=== PATIENT | male | born 2005 | race Caucasian/White ===

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

== ENCOUNTER 2025-05-20 07:34 | Emergency (ER) | payer OTHER, SELFPAY ==
--- NOTE | ~2025-05-20 | XR_ITS ---
CLINICAL HISTORY: rt hand pain 3 view right hand Comparison: None provided Findings: No fractures or dislocations. No significant arthritic change. No erosions. No radiopaque foreign body. IMPRESSION: 1. No acute findings This document has been electronically signed by: Ryan Velásquez MD on 05/20/2025 08:31:24
[2025-05-20 07:39] VITALS: BP 120/78; PULSE 61; RESP 16; TEMP 36.6; O2SAT 99; BMI 20.2
--- OUTSIDE RECORDS SUMMARY | 2025-05-20 07:47 | XMS_ITS | Encounter Summary ---
Author Organization [facility] Address [address] [place] [id number] Phone Care Team Providers Care Guide Foreign Tour Name Role Phone Hailey Connor MD Primary Care Provider [phone] Encounter Details Date Type Department Care Team (Late st Contact Info) Description 03/02/2011 Documentation [facility] Family Medicine [address] [place] [address] Family Medicine, Physician [address], [place] [id number] Social History Tobacco Use Types Packs/Day Years Used Date Smoking Tobacco: Never Assessed Sex and Gender Information Value Date Recorded Sex Assigned at Male 09/02/2023 12:38 PM EST Legal Sex Male 5:22 PM EDT Gender Identity Male 09/02/2023 12:38 PM EST Sexual Orientation Straight 09/02/2023 12 :38 PM EST documented as of this encounter Plan of Treatment Not on file documented as of this encounter Visit Diagnoses Not on filedocumented in this encounter Care Teams Guide Foreign Tour Relationship Specialty Start Date End Date Hailey Connor MD [address] [place] [address] PCP - General Pediatrics 02/25/23 documented as of this encounter
[2025-05-20 08:48] VITALS: BP 120/78; PULSE 61; RESP 16; TEMP 36.6; O2SAT 99
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
[2025-05-20] MEDS: Diphth,Pertus(ACell),Tet Adult 0.5 ML SYRINGE IM (09:03)
[2025-05-20] MEDS: Silver Nitrate Applicator STICK..EA. 1 APPL TOPICAL (09:10)
== END 2025-05-20 09:11 | disposition home or self-care (01) ==
PROVIDERS: Emergency Provider Emergency Medicine
DX: S61.214A Laceration without foreign body of right ring finger without damage to nail, initial encounter (principal); M79.644 Pain in right finger(s); X99.8XXA Assault by other sharp object, initial encounter; Y93.89 Activity, other specified; Y92.89 Other specified places as the place of occurrence of the external cause; Y99.9 Unspecified external cause status
CPT/HCPCS: 12001; 73130; 90471; 90715; 99284

== ENCOUNTER → 2025-05-20 07:40 | Outpatient (BNV) | payer OTHER, SELFPAY | PROVIDERS: Emergency Provider Emergency Medicine; Visit Provider Specialist | DX: M79.641 Pain in right hand (principal) | CPT/HCPCS: 73130 ==

== ENCOUNTER 2025-05-22 07:40 | Emergency (ER) | payer OTHER, SELFPAY ==
--- OUTSIDE RECORDS SUMMARY | 2025-05-20 07:34 | XMS_ITS | Encounter Summary ---
Author Organization [facility] Address [address] [place] [address] Phone Care Team Providers Care Coconut Boiler Name Role Phone Hailey Connor MD Primary Care Provider [phone] Reason for Visit * Reason Comments ED Admission Encounter Details Date Type Department Care Team (Late st Contact Info) Description 05/20/2025 7:34 AM EDT - 05/20/2025 8:49 AM EDT Emergency [facility] - Patient Ping Social History Tobacco Use Types Packs/Day Years Used Date Smoking Tobacco: Never Assessed Hunger/Food Answer Date Recorded In the last 12 months, did y ou or your family ever eat less than you felt you should because there wasn't enough money for food? No 09/02/2023 Stable Housing Answer Date Recorded Are you worried that in the next 2 months you may not have stable housing? No 09/02/2023 Transportation Concerns Answer Date Rec orded In the last 12 months, have you or your family ever had to go without healthcare because you didn't have a way to get there? No 09/02/2023 Hazards in Home Answer Date Recorded Think about the place you li ve. Do you have problems with any of the following? Pests (mice or roaches), mold, no/not working smoke detectors, water leaks, no window guards. No 2022 Financing Utilities Answer Date Recorde d In the last 12 months, has t he electric, gas, oil, or water company threatened to shut off your services in your home? No 09/02/2023 Safety at Home Answer Date Recorded Are you or your family worried about feeling saf e in your home? No 09/02/2023 Outside Support Answer Date Recorded Do you feel that you need mo re support from other people or programs to help you care for yourself or your family? No 09/02/2023 Understanding Health Concerns Answer Da te Recorded Do you need help understandi ng your or your child's healthcare needs (diagnosis, medications, plan, etc.)? No 09/02/2023 Financing Health Concerns Answer Date R ecorded In the last 12 months, was t here a time when your child needed to see a doctor or get medications or supplies but could not because of cost? No 09/02/2023 Missing School or Work Answer Date Sam rded Did you or your child miss s chool or work because of a health problem that could have been avoided? No 09/02/2023 Sex and Gender Information Value Date Recorded Sex Assigned at Male 09/02/2023 12:38 PM EST Legal Sex Male 5:22 PM EDT Gender Identity Male 09/02/2023 12:38 PM EST Sexual Orientation Straight 09/02/2023 12 :38 PM EST documented as of this encounter Plan of Treatment Not on file documented as of this encounter Visit Diagnoses Not on filedocumented in this encounter Care Teams Coconut Boiler Relationship Specialty Start Date End Date Hailey Connor MD [address] [place] [id number] PCP - General Pediatrics 02/25/23 documented as of this encounter
[2025-05-22 07:52] VITALS: BP 109/61; PULSE 77; RESP 14; TEMP 36.6; O2SAT 99; BMI 19.9
--- NOTE | 2025-05-22 08:06 | ED_ITS ---
HPI - General Adult General Chief complaint: Wound/Laceration Stated complaint: Finger injury, seen recently Time Seen by Provider: 05/22/25 07:58 Source: patient and family (Mother) Mode of arrival: ambulatory Limitations: no limitations History of Present Illness ED Provider: DR. Martinez HPI narrative: 19-year-old male right-handed came in for evaluation of a right ring finger possible infection. Patient was seen on 05/20 for right ring finger injury after punching a wall, causing small laceration that was closed 24 hour after the incident by Derm[facility]. Patient was discharged home on Augmentin today is day 3 to take. The x-ray revealed no acute fracture of the finger. Related Data Previous Rx's ?Medication ?Instructions ?Recorded amoxicillin 875 mg-potassium 1 tab PO BID 7 days #14 t abs 05/20/25 clavulanate 125 mg tablet doxycycline hyclate 100 mg tablet 100 mg PO BID #14 ta bs 05/22/25 Allergies Allergy/AdvReac Type Severity Reaction Status Date / Time No Known Allergies Allergy Verified 05/22/25 07:56 Review of Systems 2 Review of Systems: All other systems are reviewed and are negative Constitutional: Reports as per HPI and Reports no additional constitutional complaints Eyes: Reports as per HPI and Reports no additional eye complaints Reports system reviewed and no additional complaints, except as documented Cardiovascular: Reports as per HPI and Reports no additional cardiovascular complaints Respiratory: Reports as per HPI and Reports no additional respiratory complaints Gastrointestinal: Reports as per HPI and Reports no additional gastrointestinal complaints Genitourinary: Reports no additional female genitourinary complaints Musculoskeletal: Reports no additional musculoskeletal complaints Skin/Breast: Reports system reviewed and no additional complaints, except as docu Psychiatric: Reports no additional psychiatric complaints Endocrine: Reports no additional endocrine complaints Hematologic/Lymphatic: Reports no additional hematologic/lymphatic complaints Allergic/Immunologic: Reports no additional allergic/immunologic complaints Reports system reviewed and no additional complaints, except as documented and Reports Abnormal speech present [facility] Past Medical History Medical History No known health problems Social History Social History Alcohol intake: current Alcohol intake frequency: holidays/special occasions only Alcohol type: hard liquor Patient Tobacco Use Status: Current everyday Tobacco user Smoked in Last 30 Days: No Substance Use Type: Marijuana Current occupational status: unemployed Physical Exam ED Vital Signs: Vital Signs - 24 hr 05/22/25 07:52 Temperature 98 F Pulse Rate 77 Respiratory Rate 14 Blood Pressure 109/61 Pulse Oximetry 99 Oxygen Delivery Method Room Air BMI result Body Mass Index 19.9 Vital signs have been reviewed and appear to be correct. Blood pressure elevated. Heart rate normal. Respiratory rate normal. Temperature normal. Oxygen saturation normal. Appearance: Alert. Oriented X3. No acute distress. Head: Normal external exam. Normocephalic. Atraumatic. No Mitchell signs noted. No raccoon eyes noted Eyes: PERRLA. EOMI. Conjunctiva and sclera normal. Eyelids normal. ENT: TM's Normal. Pharynx normal. Uvula midline. Moist mucous membranes. No trismus noted. No drooling noted. No muffled voice noted. Neck: Normal inspection. Neck supple. FROM. No adenopathy. Thyroid Normal. No meningeal signs. No neck mass noted. CVS: Normal heart rate and rhythm. Heart sound normal. No murmurs noted. Pulses normal throughout. Respiratory: No respiratory distress. Painless inspiration. Breath sounds normal. No wheezes/rales/rhonchi noted. Chest nontender. No accessory muscle usage noted or decreased air movement noted. Abdomen: Soft and nontender. Bowel sounds normal in all 4 quadrants. No distention noted. No organomegaly noted. No visible injury noted. Back: No CVA tenderness. Full range of motion noted. Skin: Skin warm and dry. Normal skin color. Normal skin turgor. No rashes/lesions/lacerations noted. Extremities: Right hand: Swelling over the middle right finger on the dorsum aspect, +fluctuation, no pus drainage, slight redness. Neuro: Oriented X 3. Cranial nerve exam: II-XII are grossly intact No motor deficit. No sensory deficit. Reflexes normal. Course Reevaluation(s) Reevaluation #1: Right middle finger infection after injury and laceration of the middle finger patient is currently on Augmentin will add doxycycline for extra coverage for MRSA, swelling at the incision site but no abscess, or pus drainage. 18 gauge needle was inserted in the swelling under complete sterile technique with no pus or drainage. Time: 08:24 Procedures Abscess I/D Site: hand Side (if applicable): right (Dorsum aspect of right ring finger) Technique: needle aspiration Amount of fluid expressed (mL): 0 Packing used?: none Discharge Plan Discharge Clinical Impression: Cellulitis of right ring finger Patient Disposition: Home, Self-Care Instructions: Cellulitis (ED) Prescriptions: New doxycycline hyclate 100 mg tablet 100 mg PO BID Qty: 14 0RF No Action amoxicillin-pot clavulanate 875-125 mg tablet 1 tab PO BID 7 Days Qty: 14 0RF Referrals: Annamarie Morley MD [Physician, Hand Surgery] Print Language: Iranian
--- OUTSIDE RECORDS SUMMARY | 2025-05-22 08:51 | XMS_ITS | Encounter Summary ---
Author Organization [facility] Address [address] [place] [id number] Phone Care Team Providers Care Kettle Skimmer Name Role Phone Hailey Connor MD Primary Care Provider Encounter Details Date Type Department Care Team (Late st Contact Info) Description 03/02/2011 Documentation [facility] [place] [address] [place] [address] Family Medicine, Physician [address] [id number] Social History Tobacco Use Types Packs/Day Years [...] on filedocumented in this encounter Care Teams Kettle Skimmer Relationship Specialty Start Date End Date Hailey Connor MD [address] [place] [address] PCP - General Pediatrics 02/25/23 documented as of this encounter
--- OUTSIDE RECORDS SUMMARY | 2025-05-22 08:51 | XMS_ITS | Encounter Summary ---
Author Organization [facility] Address [address] [place] [id number] Phone Care Team Providers Care Computer System Technician Name Role Phone Hailey Connor MD Primary Care Provider [phone] Encounter Details Date Type Department Care Team (Late st Contact Info) Description 03/02/2011 Documentation [facility] [place] [address] [place] [address] Family Medicine, Physician [address], [place] [phone] Social History Tobacco Use Types Packs/Day Years [...] on filedocumented in this encounter Care Teams Computer System Technician Relationship Specialty Start Date End Date Hailey Connor MD [address] [place] [address] PCP - General Pediatrics 02/25/23 documented as of this encounter
--- OUTSIDE RECORDS SUMMARY | 2025-05-22 08:51 | XMS_ITS | Encounter Summary ---
Author Organization [facility] Address [address] [place] [phone] Phone Care Team Providers Care Heritage Consultant Name Role Phone Hailey Connor MD Primary Care Provider [phone] Encounter Details Date Type Department Care Team (Late st Contact Info) Description 05/13/2017 Conversion Encounter [facility] [address] [place] [address] Social History Tobacco Use Types Packs/Day Years [...] on filedocumented in this encounter Care Teams Heritage Consultant Relationship Specialty Start Date End Date Hailey Connor MD [address] [place] [address] PCP - General Pediatrics 02/25/23 documented as of this encounter
--- OUTSIDE RECORDS SUMMARY | 2025-05-22 08:51 | XMS_ITS | Encounter Summary ---
Author Organization [facility] Address [address] [place] [address] Phone Care Team Providers Care Inspector Golf Ball Name Role Phone Hailey Connor MD Primary Care Provider Encounter Details Date Type Department Care Team (Late st Contact Info) Description 01/16/2016 [place] [facility] [place] [address] [place] [address] Family Medicine, Physician [address] [phone] Social History Tobacco Use Types Packs/Day Years [...] on filedocumented in this encounter Care Teams Inspector Golf Ball Relationship Specialty Start Date End Date Hailey Connor MD [address] [place] [address] PCP - General Pediatrics 02/25/23 documented as of this encounter
--- OUTSIDE RECORDS SUMMARY | 2025-05-22 08:51 | XMS_ITS | Encounter Summary ---
Author Organization [facility] Address [address] [place] [phone] Phone Care Team Providers Care Certified Low Vision Therapist Name Role Phone Hailey Connor MD Primary Care Provider [phone] Encounter Details Date Type Department Care Team (Late st Contact Info) Description 03/02/2011 Documentation [facility] Family Medicine [address] [place] [address] Family Medicine, Physician [address] [phone] Social History Tobacco Use Types Packs/Day Years [...] on filedocumented in this encounter Care Teams Certified Low Vision Therapist Relationship Specialty Start Date End Date Hailey Connor MD [address] [place] [address] PCP - General Pediatrics 02/25/23 documented as of this encounter
--- OUTSIDE RECORDS SUMMARY | 2025-05-22 08:51 | XMS_ITS | Clinical Summary ---
Author Organization [facility] Address [address] [place] [address] Phone Care Team Providers Care Gas Station Operator Name Role Phone Hailey Connor MD Primary Care Provider [phone] Allergies No known active allergies Medications No known medications Active Problems Problem Noted Date Diagnosed Date Adjustment disorder with mixed anxiety and depre ssed mood 03/03/2023 Overview (04/19/2023): On 02/25/2023, mom had called [facility] stating that Jam went to [facility] for high blood alcohol content and took some pills. Mom stated that he was telling other people that he was having thoughts of SI. He was not evaluated by Crisis during the ER visit. Mom reported that his friend had and he was very emotional and possibly using alcohol to cope. Rodney RN at [facility], who took the phone call scheduled an appointment for today with me and an appointment with Mounika [facility], on 03/23/2023. Mom was also given info about [facility] and Walk in clinic. 03/23/23 - VSK - Pt was seen by [facility] - brought by his grandfather who did not have information about pt or why he was being seen. Pt indicated that he was not interested in therapy and did not feel he needed mental health support. Denied SI, SIB, and taking pills. Did indicate that he was intoxicated when he went to the ED, but reported that he has since stopped drinking. Pt is struggling with grief over the loss of two friends within the last year, both passing away suddenly and traumatically. Pt is struggling some with processing his grief, relying on avoidance. Indicated some anxiety about something happening to him. 04/19/23 - Mother took pt to Crisis after he went out walking the streets at 2:00 AM without permission. He was offered a 3-5 day stay at the stabilization program, but pt declined. Is not interested in therapy with [facility] or [facility]. Mother is aware these are options. Mother has decided to reduce her work hours for awhile so she can spend more time with pt and provide him with support. Pt seems in agreement with this idea. Assessment & Plan (09/02/2023 12:48 PM EST): WHO done today with Mounika Connelly, PhD. Plan to follow up in September. Assessment & Plan (07/22/2023 5:29 PM EDT): Patient with bereavement and difficulties adjusting with symptoms of anxiety and depression (describe symptoms) in the context of loss of a close friend, excessive alcohol use (as of 07/19/23 - Pt denied current use). Patient will benefit from support in navigating transition from HS and considering career/ education options as well as support to prevent relapse in alcohol use. PLAN: Follow up with [facility] and bridge as necessary Patient goal is to Parent was concerned about pt's safety and substance use which has improved significantly; Pt is currently starting to think about transition from HS. Behavioral Recommendations: Pt to begin to explore career options he might be interested in after HS and not let his anxiety keep him from gathering information and making decisions Pt to seek supports and information as needed c. Pt to remain sober and seek support from significant others when he is upset Assessment & Plan (04/19/2023 3:25 PM EDT): Pt is not interested in services. Mother called to refer pt, but was not available for either appointment. Suggested that pt have mother schedule with [facility] to communicate her current concerns and discuss a possible plan to proceed with as pt was not interested in scheduling a follow-up session. [facility] provided pt with her card to give his mother. Pt continues to not be interested in services - pt presents with low motivation, poor sleep schedule (reversing days and nights), and poor judgement - most recently decided to take a walk around [place] at 2:00 AM without permission. Pt is not very committed to problem solving to address his sadness/ anxiety and feelings of loneliness. Reviewed different options with family: - Follow-up with [facility] in a few weeks - Go to the walk-in at [facility] to get set up for outpatient services in the community - and/or consult with PCP about medication to address anxiety and depressive symptoms Pt's mother has decided to take some time off work - will take a wait and see approach to see if this is helpful to pt - parent invited to call [facility] if any concerns arise in the future or to seek out services through [facility]. Pt to consider things he can do that he enjoys, talking more with mother about his feelings, thinking about his interests and beginning to set goals for the future. Assessment & Plan (03/23/2023 3:06 PM EDT): Pt is not interested in services. Mother called to refer pt, but was not available for either appointment. Suggested that pt have mother schedule with [facility] to communicate her current concerns and discuss a possible plan to proceed with as pt was not interested in scheduling a follow-up session. [facility] provided pt with her card to give his mother. Assessment & Plan (03/03/2023 5:24 PM EDT): Jam denies self harming thoughts or behaviors. He denies suicidal ideation. He has a Behavioral Health appointment with Mounika at [facility] on 03/23/2023. I recommend that he see a behavioral health counselor either at [facility] or [facility] as discussed with mom prior to this visit. I also recommended [facility] to help with his grief of losing his friend. Vitamin D deficiency 02/18/2022 Overview (02/18/2022): 02/06/22 Vit D 18 rx sent on 02/09/22 unclear if pt started supplement Assessment & Plan (03/02/2022 11:41 PM EDT): Pt/mom aware of Vit D level 18; and rx sent; explained importance of Vit D and reason for usage Inattention 01/26/2022 Overview (01/26/2022): 01/23/22 improved w/ change in school over the last 4 mo; one Teacher [place] did not support dx of ADHD and mothers report suggested not only ADD but also concerns about OD, Conduct and Anxiety; requested [place] by two other teachers and return visit in 2 weeks Assessment & Plan (03/02/2022 11:46 PM EDT): [place] additional 2 teachers submitted at PE last Month and combined w/ mom seemed to suggest ADD inattention yet anxiety seems to be primary dx, pt remains uninterested in medication and declines BH support but willing to come to see me in 2-3 week for BH check in Assessment & Plan (01/26/2022 1:49 PM EDT): improved w/ change in school over the last 4 mo; one Teacher [place] did not support dx of ADHD and mothers report suggested not only ADD but also concerns about OD, Conduct and Anxiety; requested [place] by two other teachers and return visit in 2 weeks Anxiety 01/26/2022 Overview (02/18/2022): 02/06/22 DISCUSS NEED TO TX ANXIETY AND INATTENTIVENESS; ANXIETY APPEARS TO BE THE PRIMARY DX AND IF ANXIETY TX THEN INATTENTION MAY BE SECONDARY 01/23/22 ANA score 7; PHQ9 score 4 no SI in comparison to 1 year ago score 21 and active SI w/ plan; change in school over last 4 mo seems to have made a significant difference; no regular individual counselor but pt identified Gary. Shawna Gillis help the kids and help when he needs time to himself , it appears that pt never returned to [facility] despite my discussion with [facility] psychiatrist in 09/15/21 Assessment & Plan (06/13/2022 10:04 AM EDT): No medication; ANA 5 PHQ9-4; Jam is present w/ his mother today; Jam has BH support at school and continues to decline any need for psychotropic meds; he is a bit vague but seems to have decrease his MJ use to episodic vs continuous. His mother seems please w/ his progress. 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 Assessment & Plan (03/02/2022 11:44 PM EDT): ANA score remains 7; no current interest in medication; no BH provider other than school supports and school will end in a couple weeks; pt has agreed to f/u with me in 2-3 weeks Assessment & Plan (02/18/2022 6:03 AM EDT): DISCUSS NEED TO TX ANXIETY AND INATTENTIVENESS; ANXIETY APPEARS TO BE THE PRIMARY DX AND IF ANXIETY TX THEN INATTENTION MAY BE SECONDARY Assessment & Plan (01/26/2022 2:03 PM EDT): ANA score 7; PHQ9 score 4 no SI in comparison to 1 year ago score 21 and active SI w/ plan; change in school over last 4 mo seems to have made a significant difference; no regular individual counselor but pt identified Gary. Shawna Gillis help the kids and help when he needs time to himself t appears that pt never returned to [facility] despite my discussion with [facility] psychiatrist in 09/15/21 Marijuana use 08/31/2021 Overview (02/18/2022): 02/06/22 MOTIVATIONAL IDEAS TO TAPER MJ USE DISCUSSED WHICH JAM CAME UP QUITE READILY 01/23/22 reports like MJ as it keeps him still;ANA score 7 discussed THC on growing brain and discussed unknown dose of THC w/ each use as well as neurocognitive and reflex impairment; will need further discuss how MJ keeps him calm and how alternative options may also provide this benefit which are safer and more well studied Assessment & Plan (09/02/2023 12:49 PM EST): discussed THC on growing brain and discussed unknown dose of THC w/ each use as well as neurocognitive and reflex impairment; will need further discuss how MJ keeps him calm and how alternative options may also provide this benefit which are safer and more well studied Assessment & Plan (04/24/2022 8:57 PM EDT): Pt smoking MJ much less as he has no money and appears to be doing well; w/ goal of saving money vs spending on MJ when he gets his first [facility] Assessment & Plan (03/02/2022 11:43 PM EDT): Mother present w/ pt today; pt reports keep up with motivation to cease use; goal to be employed hopefully DD not only 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 but also during school year; Jam would be happy to make his own $ for personal goals Assessment & Plan (02/18/2022 6:04 AM EDT): MOTIVATIONAL IDEAS TO TAPER MJ USE DISCUSSED WHICH JAM CAME UP QUITE READILY Assessment & Plan (01/26/2022 1:50 PM EDT): reports like MJ as it keeps him still; ANA score 7discussed THC on growing brain and discussed unknown dose of THC w/ each use as well as neurocognitive and reflex impairment; will need further discuss how MJ keeps him calm and how alternative options may also provide this benefit which are safer and more well studied Psychosocial stressors 01/17/2021 Overview (01/17/2021): Jag from [place] [facility] is calling on an active 51 A. Update given. Transferred Jag to [facility]. He was looking to speak to her as well. Resolved Problems Problem Noted Date Diagnosed Date Resolved Date Suicidal ideations 01/09/2021 2 Overview (07/09/2021): Seen 02/03/21 by [facility] program by Dr. 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 12/04/2020 01/26/2022 Encounters Date Type Department Care Team Description 05/21/2025 Telephone [facility] [place] [address] [place] [address] Yfn Miller LPN Discharge Follow-Up - ED 05/20/2025 7:34 AM EDT - 05/20/2025 8:49 AM EDT Emergency [facility] - Patient Ping from Last 3 Months Immunizations Immunization Administration Dates Next Due COVID-19 Pfizer, hermelindo-sucros e, 12+ years 03/02/2022 DTaP 02/27/2011 DTaP 5 07/17/2008, 6,04/05/2006,01/27 H1N1 07/26/2009 HPV Vaccine 9 Valent 11/16/2018,12/21/2016 Hep A, ped/adol 07/17/2008,12/10/2006 Hep B, ped/adol 06/09/2006,01/27/2006,2005 Hib (PRP-T) 06/09/2006,04/05/2006,01/27/2006 IPV 02/27/2011, 6,04/05/2006,01/27 Influenza, injectable, MDCK, preservative free, quadrivalent 11/11/2016 Influenza, injectable, quadrivalent 11/13/2015,0 11/06/2014 Influenza, injectable, quadr ivalent, preservative free 06/08/2022,08/27/2021,08/14/2020,11/30,11/16/2018 Influenza, intranasal, trivalent 10/06/2012,05/29 MMR 02/27/2011,12/10/2006 Meningococcal Conj (Menactra) MCV4P 02/06/2022,0 12/21/2016 Pneumococcal Conjugate 07/26/2009,2006,06/09/2006,04/05 Tdap 12/21/2016 Varicella 02/27/2011,12/10/2006 Family History Medical History Relation Name Comments Anxiety disorder Mother Isamary Elías Migraines Mother Krish Mckinley Bipolar disorder Other 2 grandmother Relation Name Status Comments Father Alive Father: Alive a nd well Maternal Grandmother Materna l grandmother: Migraines Mother Krish Mckinley Alive Mother: Laura ghosh Other 1 aunt: Migraines Other 2 grandmother Alive Sister 1 Sussy Mcclure Alive Sister: Aliv e and well, Alive and well Sister 2 Nneka Lai Alive Sister: Alive a nd well, Alive and well Social History Tobacco Use Types Packs/Day Years [...] Orientation Straight 09/02/2023 12 :38 PM EST Last Filed Vital Signs Vital Sign Reading Time Taken Comments Blood Pressure 111/62 09/02/2023 10:59 AM EST Pulse 66 09/02/2023 10:59 AM EST Temperature 37.1 C (98.7 F) 03/03/2023 4:16 PM EDT Respiratory Rate - - Oxygen Saturation - - Inhaled Oxygen Concentration - - Weight 66.1 kg (145 lb 12.8 oz) 023 10:59 AM EST Height 179.7 cm (5' 10.75 ) 09/02/2023 10:59 AM EST Body Mass Index 20.48 09/02/2023 10:59 AM EST Body Mass Index Percentile 32.11% 09/02 10:59 AM EST Growth Chart: CDC (Boys, 2-2 0 Years) Plan of Treatment Health Maintenance Due Date Last Done Comments HIV Screening 2020 Men B Vaccine (1 of 2 - Standard) 2021 Hepatitis C Screening 12/04/2023 COVID-19 Vaccine ( season) 2024 03/02/2022, 06/25/2021, 06/04/2021 Influenza Vaccines (#1) 2025 06/08/20, 08/27/2021, 08/14/2020, Additional history exists DTaP,Tdap,and Td Vaccines (7 - Td or Tdap) 12/21/2026 12/21/2016, 02/27/2011, 07/17/2008, Additional history exists HIB Vaccines Aged Out 06/09/2006, 03/27, 01/27/2006 No longer eligible based on patient's age to complete this topic Hepatitis B Vaccines Completed 06/09/2006, 01/27/2006, 2005 Hepatitis A Vaccines Completed 07/17/2008, 12/11/19 07 Pneumococcal Vaccine Completed 07/26/2009, 10/04/2006, 06/09/2006, Additional history exists IPV Vaccines Completed 02/27/2011, 05/28, 04/05/2006, Additional history exists MMR Vaccines Completed 02/27/2011, 12/10/2006 Varicella Vaccines Completed 02/27/2011, 12/10/2006 HPV Vaccines Completed 11/16/2018, 12/21/2016 Meningococcal Vaccine Completed 02/06/2022, 017 Insurance [facility] NON [facility] Address: [address] [address] [place] [address] [facility] NON PCC M[facility] [employer] Care Teams Gas Station Operator Relationship Specialty Start Date End Date Hailey Connor MD [address] [place] [address] PCP - General Pediatrics 02/25/23
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
[2025-05-22 09:03] VITALS: BP 109/61; PULSE 77; RESP 14; TEMP 36.6; O2SAT 99
== END 2025-05-22 09:04 | disposition home or self-care (01) ==
PROVIDERS: Emergency Provider Emergency Medicine
DX: L03.011 Cellulitis of right finger (principal)
CPT/HCPCS: 10060; 99283

== ENCOUNTER 2025-05-25 09:58 | Outpatient (AMB) | payer OTHER, SELFPAY ==
--- OUTSIDE RECORDS SUMMARY | 2025-05-20 07:34 | XMS_ITS | Encounter Summary ---
Author Organization [facility] Address [address] [place] [address] Phone Care Team Providers Care Auto Wash Buffer Name Role Phone Hailey Connor MD Primary Care Provider [phone] Reason for Visit * Reason Comments ED Admission Encounter Details Date Type Department Care Team (Late st Contact Info) Description 05/20/2025 7:34 AM EDT - 05/20/2025 8:49 AM EDT Emergency [facility] - Patient Ping Social History Tobacco [...] on filedocumented in this encounter Care Teams Auto Wash Buffer Relationship Specialty Start Date End Date Hailey Connor MD [address] [place] [id number] PCP - General Pediatrics 02/25/23 documented as of this encounter
--- OUTSIDE RECORDS SUMMARY | 2025-05-22 07:40 | XMS_ITS | Encounter Summary ---
Author Organization [facility] Address [address] [place] [address] Phone Care Team Providers Care Librarian Special Library Name Role Phone Hailey Connor MD Primary Care Provider [phone] Reason for Visit * Reason Comments ED Admission Encounter Details Date Type Department Care Team (Late st Contact Info) Description 05/22/2025 7:40 AM EDT - 05/22/2025 9:04 AM EDT Emergency [facility] - Patient Ping Social History Tobacco [...] on filedocumented in this encounter Care Teams Librarian Special Library Relationship Specialty Start Date End Date Hailey Connor MD [address] [place] [id number] PCP - General Pediatrics 02/25/23 documented as of this encounter
[2025-05-25 09:59] VITALS: BMI 19.9
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
--- OUTSIDE RECORDS SUMMARY | 2025-05-25 10:44 | XMS_ITS | Encounter Summary ---
Author Organization [facility] Address [address] [place] [id number] Phone Care Team Providers Care Agricultural Education Instructor Name Role Phone Hailey Connor MD Primary Care Provider [phone] Encounter Details Date Type Department Care Team (Late st Contact Info) Description 05/13/2017 Conversion Encounter [facility] [place] [address] [place] [address] Social History Tobacco Use Types Packs/Day Years [...] on filedocumented in this encounter Care Teams Agricultural Education Instructor Relationship Specialty Start Date End Date Hailey Connor MD [address] [place] [address] PCP - General Pediatrics 02/25/23 documented as of this encounter
--- OUTSIDE RECORDS SUMMARY | 2025-05-25 10:44 | XMS_ITS | Encounter Summary ---
Author Organization [facility] Address [address] [place] [address] Phone Care Team Providers Care Aeronautical Test Engineer Name Role Phone Hailey Connor MD Primary Care Provider [phone] Encounter Details Date Type Department Care Team (Late st Contact Info) Description 03/02/2011 Documentation [facility] [address] [place] [address] Family Medicine, Physician [address] [id number] Social History Tobacco Use Types Packs/Day Years [...] on filedocumented in this encounter Care Teams Aeronautical Test Engineer Relationship Specialty Start Date End Date Hailey Connor MD [address] [place] [address] PCP - General Pediatrics 02/25/23 documented as of this encounter
--- OUTSIDE RECORDS SUMMARY | 2025-05-25 10:44 | XMS_ITS | Encounter Summary ---
Author Organization [facility] Address [address] [place] [address] Phone Care Team Providers Care Brush Fabrication Supervisor Name Role Phone Hailey Connor MD Primary Care Provider [phone] Encounter Details Date Type Department Care Team (Late st Contact Info) Description 01/16/2016 Documentation [facility] [place] [address] [place] [address] Family Medicine, Physician [address] [place], [place] [phone] Social History Tobacco Use Types Packs/Day Years [...] on filedocumented in this encounter Care Teams Brush Fabrication Supervisor Relationship Specialty Start Date End Date Hailey Connor MD [address] [place] [address] PCP - General Pediatrics 02/25/23 documented as of this encounter
--- OUTSIDE RECORDS SUMMARY | 2025-05-25 10:44 | XMS_ITS | Encounter Summary ---
Author Organization [facility] Address [address] [place] [address] Phone Care Team Providers Care Lean Process Deployment Consultant Name Role Phone Hailey Connor MD Primary Care Provider [phone] Reason for Visit * Reason Onset Date Comments Discharge Follow-Up - ED 05/21/2025 Encounter Details Date Type Department Care Team (Late st Contact Info) Description 05/21/2025 Telephone [facility] [place] [address] [place] [address] Yfn Miller LPN [address] [place] [address] Discharge Follow-Up - ED Social History Tobacco [...] Miscellaneous Notes * Telephone Encounter - Yfn Millre LPN - 05/21/2025 1:30 PM EDT Pt [...] on filedocumented in this encounter Care Teams Lean Process Deployment Consultant Relationship Specialty Start Date End Date Hailey Connor MD [address] [place] [address] PCP - General Pediatrics 02/25/23 documented as of this encounter
--- OUTSIDE RECORDS SUMMARY | 2025-05-25 10:44 | XMS_ITS | Clinical Summary ---
Author Organization [facility] Address [address] [place] [address] Phone Care Team Providers Care Sales Representative Graphic Art Name Role Phone Hailey Connor MD Primary Care Provider [phone] Allergies No known active allergies Medications No known medications Active Problems Problem Noted Date Diagnosed Date Adjustment disorder with mixed anxiety and depre ssed mood 03/03/2023 Overview (04/19/2023): On 02/25/2023, mom had called [facility] stating that Jam went [place] [facility] for high blood alcohol content and took some pills. Mom stated that he was telling other people that he was having thoughts of SI. He was not evaluated by Crisis during the ER visit. Mom reported that his friend had and he was very emotional and possibly using alcohol to cope. Rodney RN at [facility], who took the phone call scheduled an appointment for today with me and an appointment with Mounika [facility], on 03/23/2023. Mom was also given info about [facility] and Walk in clinic. 03/23/23 - VSK - Pt was seen by [facility] - brought by his grandfather who did [...] declined. Is not interested in therapy with [facility] or [facility]. Mother is aware these are [...] in alcohol use. PLAN: Follow up with [facility] and bridge as necessary Patient goal is [...] Suggested that pt have mother schedule with [facility] to communicate her current concerns and discuss a possible plan to proceed with as pt was not interested in scheduling a follow-up session. [facility] provided pt with her card to give his mother. Pt continues to not be interested in services - pt presents with low motivation, poor sleep schedule (reversing days and nights), and poor judgement - most recently decided to take a walk around [place] at 2:00 AM without permission. Pt is not very committed to problem solving to address his sadness/ anxiety and feelings of loneliness. Reviewed different options with family: - Follow-up with [facility] in a few weeks - Go to the walk-in at [facility] to get set up for outpatient services in the community - and/or consult with PCP about medication to address anxiety and depressive symptoms Pt's mother has decided to take some time off work - will take a wait and see approach to see if this is helpful to pt - parent invited to call [facility] if any concerns arise in the future or to seek out services through [facility]. Pt to consider things he can do that he enjoys, talking more with mother about his feelings, thinking about his interests and beginning to set goals for the future. Assessment & Plan (03/23/2023 3:06 PM EDT): Pt is not interested in services. Mother called to refer pt, but was not available for either appointment. Suggested that pt have mother schedule with [facility] to communicate her current concerns and discuss a possible plan to proceed with as pt was not interested in scheduling a follow-up session. [facility] provided pt with her card to give his mother. Assessment & Plan (03/03/2023 5:24 PM EDT): Jam denies self harming thoughts or behaviors. He denies suicidal ideation. He has a Behavioral Health appointment with Mounika at [facility] on 03/23/2023. I recommend that he see a behavioral health counselor either at [facility] or [facility] as discussed with mom prior to this [...] over the last 4 mo; one Teacher [place] did not support dx of ADHD and [...] concerns about OD, Conduct and Anxiety; requested [place] by two other teachers and return visit [...] it appears that pt never returned to [facility] despite my discussion with [facility] psychiatrist in 09/15/21 Assessment & Plan (06/13/2022 [...] MJ; plans to get a job at [employer] soon and hopes to save his money; going into 11th grade but may graduate early; 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 Update given. Transferred Jag to [facility]. He was looking to speak to her as well. Resolved Problems Problem Noted Date Diagnosed Date Resolved Date Suicidal ideations 01/09/2021 2 Overview (07/09/2021): Seen 02/03/21 by [facility] program by Dr. 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 12/04/2020 01/26/2022 Encounters Date Type Department Care Team Description 05/22/2025 7:40 AM EDT - 05/22/2025 9:04 AM EDT Emergency [facility] - Patient Ping 05/21/2025 Telephone [facility] [place] [facility] - [address] [phone] Yfn Miller LPN Discharge Follow-Up - ED 05/20/2025 7:34 AM EDT - 05/20/2025 8:49 AM EDT Emergency [facility] - Patient Ping from Last 3 Months Immunizations Immunization Administration Dates Next Due COVID-19 napoleon Yadav, 12+ years 03/02/2022 DTaP 02/27/2011 DTaP 5 [...] History Relation Name Comments Anxiety disorder Mother Krish Mckinley Migraines Mother Krish Mckinley Bipolar disorder Other [...] 08/14/2020, Additional history exists DTaP,Tdap,and Td Vaccines (8 - Td or Tdap) 05/20/2035 05/20/2025, 12/21/2016, 02/27/2011, Additional history exists HIB Vaccines Aged Out [...] 12/21/2016 Meningococcal Vaccine Completed 02/06/2022, 017 Insurance [facility] NON [facility] [place]: [address] [address] [place] [address] [facility] NON PCC [facility] Care Teams Sales Representative Graphic Art Relationship Specialty Start Date End Date Hailey Connor MD [address] [place] [address] PCP - General Pediatrics 02/25/23
--- OUTSIDE RECORDS SUMMARY | 2025-05-25 10:44 | XMS_ITS | Encounter Summary ---
Author Organization [facility] Address [address] [place] [address] Phone Care Team Providers Care Business Development Name Role Phone Hailey Connor MD Primary Care Provider Encounter Details Date Type Department Care Team (Late st Contact Info) Description 03/02/2011 Documentation [facility] [place] Family Medicine [address] [place] [address] Family Medicine, Physician [address] [phone] Social History Tobacco Use Types Packs/Day Years [...] on filedocumented in this encounter Care Teams Business Development Relationship Specialty Start Date End Date Hailey Connor MD [address] [place] [address] PCP - General Pediatrics 02/25/23 documented as of this encounter
--- OUTSIDE RECORDS SUMMARY | 2025-05-25 10:44 | XMS_ITS | Encounter Summary ---
Author Organization [facility] Address [address] [place] [address] Phone Care Team Providers Care Specialized Developer Name Role Phone Hailey Connor MD Primary Care Provider [phone] Encounter Details Date Type Department Care Team (Late st Contact Info) Description 03/02/2011 Documentation [facility] [place] Family Medicine [address] [place] [address] Family Medicine, Physician [address], [place] [phone] Social History Tobacco Use Types Packs/Day Years [...] on filedocumented in this encounter Care Teams Specialized Developer Relationship Specialty Start Date End Date Hailey Connor MD [address] [place] [address] PCP - General Pediatrics 02/25/23 documented as of this encounter
== END 2025-05-25 10:32 | disposition home or self-care (01) ==
LOC: HO.HOS 09:58
DX: S61.214A Laceration without foreign body of right ring finger without damage to nail, initial encounter (principal)
CPT/HCPCS: 99213

== ENCOUNTER → 2025-05-25 09:58 | Outpatient (BNVA) | payer OTHER, SELFPAY | DX: S61.214A Laceration without foreign body of right ring finger without damage to nail, initial encounter (principal); W22.01XA Walked into wall, initial encounter; Y93.9 Activity, unspecified; Y92.9 Unspecified place or not applicable; Y99.9 Unspecified external cause status | CPT/HCPCS: 99212 ==

== ENCOUNTER 2025-06-25 14:11 | Outpatient (AMB) | payer OTHER, SELFPAY ==
--- NOTE | 2025-06-25 14:33 | A.OFFVIS_ITS ---
Vital Signs 06/25/25 14:37 Height 5 ft 11 in Weight 143 lb BMI 19.9 Intake Visit Reasons: OV-RT 4th digit laceration DOI 05/19/25-w/xrays Intake Note: Jaden is a 19 year old right hand dominant male who presents today for follow up status post Right Ring Finger Laceration, DOI: 05/19/25. At his last visit he was notified no further splint was needed. He was advised to perform daily dressing changes, keeping the area clean and dry. He was further advised to begin working on early ROM. Patient reports he is doing much better. He denies any pain or painful ROM. He is no longer feeling pressure at the knuckle. He is no longer taking pain medications or antibiotics. Accompanied by: Mother Allergies No Known Allergies Allergy (Verified 06/25/25 14:34) HPI HPI OV-RT 4th digit laceration DOI 05/19/25-w/xrays: Details: Jaden is a 19 year old right hand dominant male who presents today for follow up status post Right Ring Finger Laceration, DOI: 05/19/25. At his last visit he was notified no further splint was needed. He was advised to perform daily dressing changes, keeping the area clean and dry. He was further advised to begin working on early ROM. Patient reports he is doing much better. He denies any pain or painful ROM. He is no longer feeling pressure at the knuckle. He is no longer taking pain medications or antibiotics. [facility] Medical History No known health problems Social History (Updated 05/25/25 @ 10:03 by MICH Juan) Alcohol intake: current Alcohol intake frequency: holidays/special occasions only Alcohol type: hard liquor Patient Tobacco Use Status: Never used Tobacco Substance Use Type: Marijuana Current occupational status: unemployed Current occupation: rt handed Physical Exam Vital Signs: BMI result Body Mass Index 19.9 Extrem Other: Patient is alert, oriented, and in no acute distress. Neuro: Normal sensation of the tips of all digits of the right hand at this time Vascular: Cap refill brisk Pain: No tenderness to palpation about laceration over dorsal PIP joint of right ring finger No further discomfort with range of motion of the right ring finger ROM: Patient is able to obtain approximately 90 degrees of flexion of the MCP joint of the right ring finger Patient is able to flex and extend the DIP joint of the right ring finger without difficulty Skin: There is an approximately 2-3 cm in length longitudinal well healed laceration over the dorsal PIP joint of the right ring finger General: No ecchymosis, erythema, or evidence of infection. Psych: Appears grossly normal Affect normal Attitude cooperative Assessment & Plan Assessment & Plan (1) Laceration of right ring finger: Code(s): S61.214A - Laceration without foreign body of right ring finger without damage to nail, initial encounter Category: Medical Plan 1. Laceration of right ring finger No evidence of nerve or tendon involvement Date of injury 05/19/2025 Patient appears to be recovering fairly well from this injury Patient is educated about the typical treatment course No further dressings necessary, as incision is well healed No further splinting indicated May wash with soap and water Patient is educated he should begin working on early range of motion of the right ring finger Patient understands this is amenable to this plan Follow-up as needed with any acute concerns Coding Level of Care Code Est Pt Level 3 (42405) Diagnoses Laceration of right ring finger S61.214A
[2025-06-25 14:37] VITALS: BMI 19.9
--- OUTSIDE RECORDS SUMMARY | 2025-06-25 16:02 | XMS_ITS | Encounter Summary ---
Author Organization [facility] Address [address] [place] [address] Phone Care Team Providers Care Emergency Preparedness Coordinator Name Role Phone Hailey Connor MD Primary Care Provider [phone] Encounter Details Date Type Department Care Team (Late st Contact Info) Description 03/02/2011 Documentation [facility] [place] Family Medicine [address] [place] [address] Family Medicine, Physician [address] [place], [place] [phone] Social History Tobacco Use Types Packs/Day Years [...] on filedocumented in this encounter Care Teams Emergency Preparedness Coordinator Relationship Specialty Start Date End Date Hailey Connor MD [address] [place] [address] PCP - General Pediatrics 02/25/23 documented as of this encounter
--- OUTSIDE RECORDS SUMMARY | 2025-06-25 16:02 | XMS_ITS | Encounter Summary ---
Author Organization [facility] Address [address] [place] [address] Phone Care Team Providers Care Network Security Analyst Name Role Phone Hailey Connor MD Primary Care Provider [phone] Encounter Details Date Type Department Care Team (Late st Contact Info) Description 03/02/2011 Documentation [facility] [place] Family Medicine [address] [place] [address] Family Medicine, Physician [address], [place] [phone] Social History Tobacco Use Types Packs/Day Years [...] on filedocumented in this encounter Care Teams Network Security Analyst Relationship Specialty Start Date End Date Hailey Connor MD [address] [place] [address] PCP - General Pediatrics 02/25/23 documented as of this encounter
--- OUTSIDE RECORDS SUMMARY | 2025-06-25 16:02 | XMS_ITS | Encounter Summary ---
Author Organization [facility] Address [address] [place] [address] Phone Care Team Providers Care Production Shift Supervisor Name Role Phone Hailey Connor MD Primary Care Provider [phone] Encounter Details Date Type Department Care Team (Late st Contact Info) Description 01/16/2016 Documentation [facility] [place] Medicine [address] [place] [address] Family Medicine, Physician [address] [place] [phone] Social History Tobacco Use Types Packs/Day Years [...] on filedocumented in this encounter Care Teams Production Shift Supervisor Relationship Specialty Start Date End Date Hailey Connor MD [address] [place] [address] PCP - General Pediatrics 02/25/23 documented as of this encounter
--- OUTSIDE RECORDS SUMMARY | 2025-06-25 16:02 | XMS_ITS | Clinical Summary ---
Author Organization [facility] Address [address] [place] [address] Phone Care Team Providers Care International Logistics Manager Name Role Phone Hailey Connor MD Primary Care Provider [phone] Allergies No known active allergies Medications No known medications Active Problems Problem Noted Date Diagnosed Date Adjustment disorder with mixed anxiety and depre ssed mood 03/03/2023 Overview (04/19/2023): On 02/25/2023, mom had called [facility] stating that Jam went to [facility] for high blood alcohol content and took some pills. Mom stated that he was telling other people that he was having thoughts of SI. He was not evaluated by Crisis during the ER visit. Mom reported that his friend had and he was very emotional and possibly using alcohol to cope. Rodney RN at [facility], who took the phone call scheduled an appointment for today with me and an appointment with Mounika [facility], on 03/23/2023. Mom was also given info about [facility] and Walk in clinic. 03/23/23 - VSK - Pt was seen by [facility] - brought by his grandfather who did [...] declined. Is not interested in therapy with [facility] or [facility]. Mother is aware these are [...] in alcohol use. PLAN: Follow up with [facility] and bridge as necessary Patient goal is [...] Suggested that pt have mother schedule with [facility] to communicate her current concerns and discuss a possible plan to proceed with as pt was not interested in scheduling a follow-up session. [facility] provided pt with her card to give his mother. Pt continues to not be interested in services - pt presents with low motivation, poor sleep schedule (reversing days and nights), and poor judgement - most recently decided to take a walk around [place] at 2:00 AM without permission. Pt is not very committed to problem solving to address his sadness/ anxiety and feelings of loneliness. Reviewed different options with family: - Follow-up with [facility] in a few weeks - Go to the walk-in at [facility] to get set up for outpatient services in the community - and/or consult with PCP about medication to address anxiety and depressive symptoms Pt's mother has decided to take some time off work - will take a wait and see approach to see if this is helpful to pt - parent invited to call [facility] if any concerns arise in the future or to seek out services through [facility]. Pt to consider things he can do that he enjoys, talking more with mother about his feelings, thinking about his interests and beginning to set goals for the future. Assessment & Plan (03/23/2023 3:06 PM EDT): Pt is not interested in services. Mother called to refer pt, but was not available for either appointment. Suggested that pt have mother schedule with [facility] to communicate her current concerns and discuss a possible plan to proceed with as pt was not interested in scheduling a follow-up session. [facility] provided pt with her card to give his mother. Assessment & Plan (03/03/2023 5:24 PM EDT): Jam denies self harming thoughts or behaviors. He denies suicidal ideation. He has a Behavioral Health appointment with Mounika at [facility] on 03/23/2023. I recommend that he see a behavioral health counselor either at [facility] or [facility] as discussed with mom prior to this [...] over the last 4 mo; one Teacher [place] did not support dx of ADHD and [...] concerns about OD, Conduct and Anxiety; requested [place] by two other teachers and return visit [...] [facility]IOR[facility] despite my discussion with [facility] psychiatrist in 09/15/21 Assessment & [...] MJ; plans to get a job at [employer] soon and hopes to save his money; going into 11th grade but may graduate early; 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 Update given. Transferred Jag to [facility]. He was looking to speak to her as well. Resolved Problems Problem Noted Date Diagnosed Date Resolved Date Suicidal ideations 01/09/2021 2 Overview (07/09/2021): Seen 02/03/21 by [facility] program by Dr. Sarabia under Attending Helio [...] EDT - 05/22/2025 9:04 AM EDT Emergency [facility] - Patient Ping 05/21/2025 Telephone [facility] [facility] - [address] [phone] Yfn Miller LPN Discharge Follow-Up - ED 05/20/2025 7:34 AM EDT - 05/20/2025 8:49 AM EDT Emergency [facility] - Patient Ping from Last 3 [...] - Standard) 2021 Hepatitis C Screening 12/04/2023 Influenza Vaccines (#1) 2025 06/08/20, 08/27/2021, 08/14/2020, Additional history exists COVID-19 Vaccine ( season) 2025 03/02/2022, 06/25/2021, 06/04/2021 DTaP,Tdap,and Td Vaccines (8 - Td or [...] 12/21/2016 Meningococcal Vaccine Completed 02/06/2022, 017 Insurance [facility] Address: [address] [address] [place] [address] [facility] NON PCC ALYSSAOtoniel [facility] Care Teams International Logistics Manager Relationship Specialty Start Date End Date Hailey Connor MD [address] [place] [address] PCP - General Pediatrics 02/25/23
--- OUTSIDE RECORDS SUMMARY | 2025-06-25 16:02 | XMS_ITS | Encounter Summary ---
Author Organization [facility] Address [address] [place] [address] Phone Care Team Providers Care Beef Grinder Name Role Phone Hailey Connor MD Primary Care Provider [phone] Encounter Details Date Type Department Care Team (Late st Contact Info) Description 05/13/2017 Conversion Encounter [facility] [place] [address] [place] [address] Social History Tobacco Use Types Packs/Day Years [...] on filedocumented in this encounter Care Teams Beef Grinder Relationship Specialty Start Date End Date Hailey Connor MD [address] [place] [address] PCP - General Pediatrics 02/25/23 documented as of this encounter
--- OUTSIDE RECORDS SUMMARY | 2025-06-25 16:02 | XMS_ITS | Encounter Summary ---
Author Organization [facility] Address [address] [place] [id number] Phone Care Team Providers Care Small Business Banking Officer Name Role Phone Hailey Connor MD Primary Care Provider [phone] Encounter Details Date Type Department Care Team (Late st Contact Info) Description 03/02/2011 Documentation [facility] [place] Family Medicine [address] [place] [address] Family Medicine, Physician [address], [place] [id number] Social History Tobacco Use Types Packs/Day Years [...] on filedocumented in this encounter Care Teams Small Business Banking Officer Relationship Specialty Start Date End Date Hailey Connor MD [address] [place] [address] PCP - General Pediatrics 02/25/23 documented as of this encounter
--- OUTSIDE RECORDS SUMMARY | 2025-06-25 16:02 | XMS_ITS | Encounter Summary ---
Author Organization [facility] Address [address] [place] [id number] Phone Care Team Providers Care Hand Profiler Name Role Phone Hailey Connor MD Primary Care Provider [phone] Reason for Visit * Reason Onset Date Comments Discharge Follow-Up - ED 05/21/2025 Encounter Details Date Type Department Care Team (Late st Contact Info) Description 05/21/2025 Telephone [facility] [place] [address] [place] [address] Yfn Miller LPN [address] [place] [address] Discharge Follow-Up - ED Social History Tobacco [...] on filedocumented in this encounter Care Teams Hand Profiler Relationship Specialty Start Date End Date Hailey Connor MD [address] [place] [id number] PCP - General Pediatrics 02/25/23 documented as of this encounter
== END 2025-06-25 14:47 | disposition home or self-care (01) ==
LOC: HO.HOS 14:12
DX: S61.214A Laceration without foreign body of right ring finger without damage to nail, initial encounter (principal)
CPT/HCPCS: 99213

== ENCOUNTER → 2025-06-25 14:11 | Outpatient (BNVA) | payer OTHER, SELFPAY | DX: S61.214D Laceration without foreign body of right ring finger without damage to nail, subsequent encounter (principal) | CPT/HCPCS: 99212 ==